=== PATIENT | male | born 1975 | race Hispanic/Latino ===

== ENCOUNTER → 2023-07-10 09:46 | Outpatient (REF) | payer OTHER, SELFPAY ==
[2023-07-10 10:52] LABS: ALT (SGPT) 154 U/L (0-50); AST (SGOT) 75 U/L (17-59); Albumin 3.3 g/dl (3.5-5.0); Alkaline Phosphatase 168 U/L (38-126); Blood Urea Nitrogen 7 mg/dl (9-20); Calcium 8.1 mg/dl (8.4-10.2); Carbon Dioxide 28 mmol/L (22-30); Chloride 109 mmol/L (98-107); GGTP 154 U/L (15-73); Glucose 99 mg/dl (70-99); Potassium 3.7 mmol/L (3.5-5.1); Sodium 139 mmol/L (135-145); Total Bilirubin 0.8 mg/dl (0.2-1.3); Total Protein 6.6 g/dl (6.3-8.2); eGFR > 60.00
[2023-07-10 11:06] LABS: Free T4 1.27 ng/dl (0.78-2.19)
[2023-07-10 11:19] LABS: TSH 0.93 uIU/ml (0.47-4.68)
[2023-07-10 11:49] LABS: Glycohemoglobin (HgbA1c) 7.7 % (4.0-5.6)
== END ==
LOC: REG 09:46
PROVIDERS: ATTENDING PHYSICIAN Nurse Practitioner Adult Health
DX: E66.3 Overweight (principal); E11.9 Type 2 diabetes mellitus without complications; K76.0 Fatty (change of) liver, not elsewhere classified
CPT/HCPCS: 36415; 80053; 82977; 83036; 84439; 84443

== ENCOUNTER → 2023-11-13 10:42 | Outpatient (REF) | payer OTHER, SELFPAY ==
[2023-11-13 11:38] LABS: ALT (SGPT) 129 U/L (0-50); AST (SGOT) 80 U/L (17-59); Albumin 3.5 g/dl (3.5-5.0); Alkaline Phosphatase 169 U/L (38-126); Blood Urea Nitrogen 9 mg/dl (9-20); Calcium 8.4 mg/dl (8.4-10.2); Carbon Dioxide 28 mmol/L (22-30); Chloride 107 mmol/L (98-107); GGTP 164 U/L (15-73); Glucose 123 mg/dl (70-99); Sodium 140 mmol/L (135-145); Total Bilirubin 0.8 mg/dl (0.2-1.3); Total Protein 6.4 g/dl (6.3-8.2); eGFR > 60.00
[2023-11-13 11:52] LABS: Free T4 1.23 ng/dl (0.78-2.19)
[2023-11-13 12:06] LABS: TSH 1.07 uIU/ml (0.47-4.68)
[2023-11-13 12:14] LABS: Glycohemoglobin (HgbA1c) 8.7 % (4.0-5.6)
== END ==
LOC: CLINIC 10:42
PROVIDERS: ATTENDING PHYSICIAN Nurse Practitioner Adult Health
DX: K76.0 Fatty (change of) liver, not elsewhere classified (principal); E66.3 Overweight; E11.9 Type 2 diabetes mellitus without complications
CPT/HCPCS: 36415; 80053; 82977; 83036; 84439; 84443

== ENCOUNTER → 2024-01-08 10:48 | Outpatient (REF) | payer OTHER, SELFPAY ==
[2024-01-08 12:17] LABS: ALT (SGPT) 136 U/L (0-50); AST (SGOT) 82 U/L (17-59); Albumin 3.6 g/dl (3.5-5.0); Alkaline Phosphatase 158 U/L (38-126); Blood Urea Nitrogen 11 mg/dl (9-20); Calcium 8.8 mg/dl (8.4-10.2); Carbon Dioxide 25 mmol/L (22-30); Chloride 105 mmol/L (98-107); Glucose 102 mg/dl (70-99); HDL Cholesterol 43 mg/dl; LDL Cholesterol, Calculated 138 mg/dl; Potassium 4.1 mmol/L (3.5-5.1); Sodium 143 mmol/L (135-145); Total Bilirubin 0.8 mg/dl (0.2-1.3); Total Cholesterol 213 mg/dl (50-199); Total Protein 6.7 g/dl (6.3-8.2); Triglyceride 162 mg/dl (10-149); Very Low Density Lipoprotein 32 mg/dl (0-30); eGFR > 60.00
[2024-01-08 12:23] LABS: Glycohemoglobin (HgbA1c) 6.9 % (4.0-5.6)
== END ==
LOC: REG 10:48
PROVIDERS: ATTENDING PHYSICIAN Nurse Practitioner Adult Health
DX: E78.5 Hyperlipidemia, unspecified (principal); R74.8 Abnormal levels of other serum enzymes; E11.9 Type 2 diabetes mellitus without complications
CPT/HCPCS: 36415; 80053; 80061; 83036

== ENCOUNTER → 2024-06-11 14:41 | Outpatient (REF) | payer OTHER, SELFPAY ==
[2024-06-11 17:16] LABS: Hematocrit 35.9 % (39.0-52.0); Hemoglobin 10.9 g/dL (13.0-18.0); Mean Corp Hgb Conc. 30.4 g/dL (33.0-37.0); Mean Corpuscular Hgb 22.4 pg (27.0-31.0); Mean Corpuscular Volume 73.7 fL (80.0-94.0); Platelet Count 107 10^3/uL (130-400); Red Blood Cell Count 4.87 10^6/uL (4.70-6.10); Red Cell Dist. Width 15.6 % (11.5-14.5); White Blood Cell Count 4.3 10^3/uL (4.8-10.8)
[2024-06-11 17:57] LABS: ALT (SGPT) 95 U/L (0-50); AST (SGOT) 60 U/L (17-59); Albumin 3.5 g/dl (3.5-5.0); Alkaline Phosphatase 154 U/L (38-126); Blood Urea Nitrogen 7 mg/dl (9-20); Calcium 8.3 mg/dl (8.4-10.2); Carbon Dioxide 27 mmol/L (22-30); Chloride 103 mmol/L (98-107); Glucose 97 mg/dl (70-99); Sodium 138 mmol/L (135-145); Total Bilirubin 1.1 mg/dl (0.2-1.3); Total Protein 6.4 g/dl (6.3-8.2); eGFR > 60.00
[2024-06-11 18:02] LABS: GGTP 113 U/L (15-73)
[2024-06-11 18:12] LABS: Vitamin D, 25-OH*** < 12.8 ng/mL (30-80)
[2024-06-12 08:55] LABS: Glycohemoglobin (HgbA1c) 7.8 % (4.0-5.6)
== END ==
LOC: REG 14:41
PROVIDERS: ATTENDING PHYSICIAN Nurse Practitioner Adult Health
DX: R74.8 Abnormal levels of other serum enzymes (principal); E11.9 Type 2 diabetes mellitus without complications; D50.9 Iron deficiency anemia, unspecified; E55.9 Vitamin D deficiency, unspecified
CPT/HCPCS: 36415; 80053; 82306; 82977; 83036; 85027

== ENCOUNTER → 2024-08-26 10:51 | Outpatient (REF) | payer OTHER, SELFPAY ==
[2024-08-26 12:02] LABS: Hematocrit 36.3 % (39.0-52.0); Hemoglobin 11.3 g/dL (13.0-18.0); Mean Corp Hgb Conc. 31.1 g/dL (33.0-37.0); Mean Corpuscular Hgb 22.8 pg (27.0-31.0); Mean Corpuscular Volume 73.2 fL (80.0-94.0); Platelet Count 110 10^3/uL (130-400); Red Blood Cell Count 4.96 10^6/uL (4.70-6.10); Red Cell Dist. Width 19.7 % (11.5-14.5); White Blood Cell Count 3.6 10^3/uL (4.8-10.8)
[2024-08-26 12:33] LABS: ALT (SGPT) 92 U/L (0-50); AST (SGOT) 50 U/L (17-59); Albumin 3.6 g/dl (3.5-5.0); Alkaline Phosphatase 149 U/L (38-126); Blood Urea Nitrogen 9 mg/dl (9-20); Calcium 8.5 mg/dl (8.4-10.2); Carbon Dioxide 26 mmol/L (22-30); Chloride 109 mmol/L (98-107); Glucose 117 mg/dl (70-99); Iron 74 ug/dl (49-181); Sodium 142 mmol/L (135-145); Total Bilirubin 0.9 mg/dl (0.2-1.3); Total Protein 6.4 g/dl (6.3-8.2); eGFR > 60.00
[2024-08-26 12:37] LABS: IgA 341 mg/dl (70-400); Vitamin D, 25-OH*** 32.6 ng/mL (30-80)
[2024-08-26 12:42] LABS: Percent Saturation 14 % (20-50); Total Iron Binding Capacity 497 ug/dl (261-462)
[2024-08-26 12:55] LABS: Ferritin 10.1 ng/ml (17.9-464.0)
[2024-08-26 13:10] LABS: Vitamin B12 587 pg/ml (239-931)
[2024-08-27 11:35] LABS: H. pylori Breath Test Positive (Negative)
[2024-08-28 08:53] LABS: Endomysial IgA Antibody Titer <1:10 (<1:10)
[2024-08-28 11:47] LABS: tTG IgA Antibody 6.6 EU/ml (0-19); tTG IgG Antibody 13.3 EU/ml (0-19)
== END ==
LOC: CLINIC 10:51
PROVIDERS: ATTENDING PHYSICIAN Nurse Practitioner Adult Health
DX: D64.9 Anemia, unspecified (principal)
CPT/HCPCS: 36415; 80053; 82306; 82607; 82728; 82784; 83013; 83516; 83540; 83550; 85027; 86231

== ENCOUNTER → 2025-01-07 14:02 | Outpatient (REF) | payer OTHER, SELFPAY ==
[2025-01-07 15:08] LABS: Hematocrit 34.7 % (39.0-52.0); Hemoglobin 10.0 g/dL (13.0-18.0); Mean Corp Hgb Conc. 28.8 g/dL (33.0-37.0); Mean Corpuscular Volume 69.7 fL (80.0-94.0); Platelet Count 118 10^3/uL (130-400); Red Cell Dist. Width 16.2 % (11.5-14.5)
[2025-01-07 15:59] LABS: Vitamin D, 25-OH*** 18.8 ng/mL (30-80)
[2025-01-07 16:32] LABS: ALT (SGPT) 115 U/L (0-50); AST (SGOT) 74 U/L (17-59); Albumin 3.8 g/dl (3.5-5.0); Alkaline Phosphatase 166 U/L (38-126); Blood Urea Nitrogen 10 mg/dl (9-20); Calcium 8.7 mg/dl (8.4-10.2); Carbon Dioxide 28 mmol/L (22-30); Chloride 107 mmol/L (98-107); Glucose 104 mg/dl (70-99); Potassium 3.8 mmol/L (3.5-5.1); Sodium 140 mmol/L (135-145); Total Protein 7.2 g/dl (6.3-8.2); eGFR > 60.00
[2025-01-08 10:12] LABS: Glycohemoglobin (HgbA1c) 8.7 % (4.0-5.6)
== END ==
LOC: CLINIC 14:02
PROVIDERS: ATTENDING PHYSICIAN Nurse Practitioner Adult Health
DX: A04.8 Other specified bacterial intestinal infections (principal); D50.9 Iron deficiency anemia, unspecified; E11.9 Type 2 diabetes mellitus without complications; K76.0 Fatty (change of) liver, not elsewhere classified; R74.8 Abnormal levels of other serum enzymes; E55.9 Vitamin D deficiency, unspecified
CPT/HCPCS: 36415; 80053; 82306; 83013; 83036; 85027

== ENCOUNTER → 2025-01-13 11:42 | Outpatient (REF) | payer OTHER, SELFPAY ==
[2025-01-13 13:20] LABS: ALT (SGPT) 104 U/L (0-50); AST (SGOT) 67 U/L (17-59); Albumin 3.5 g/dl (3.5-5.0); Alkaline Phosphatase 159 U/L (38-126); Total Protein 6.9 g/dl (6.3-8.2)
[2025-01-13 19:14] LABS: Hepatitis B Surface Antigen Negative (Negative)
[2025-01-13 19:33] LABS: Hepatitis C Antibody Negative (Negative)
[2025-01-15 22:01] LABS: Mitochondrial M2 Ab, IgG 13.9 Units (0.0-24.9)
[2025-01-16 02:38] LABS: ANA, IgG Reflex to HEp-2 None Detected (None Detected)
== END ==
LOC: CLINIC 11:42
PROVIDERS: ATTENDING PHYSICIAN Internal Medicine Gastroenterology
DX: R74.8 Abnormal levels of other serum enzymes (principal)
CPT/HCPCS: 36415; 80076; 82784; 86015; 86038; 86376; 86381; 86704; 86706; 86803; 87340

== ENCOUNTER → 2025-01-27 10:28 | Outpatient (REF) | payer OTHER, SELFPAY | LOC: CLINIC 10:28 | PROVIDERS: ATTENDING PHYSICIAN Nurse Practitioner Adult Health | DX: R74.8 Abnormal levels of other serum enzymes (principal) | CPT/HCPCS: 76700 ==

== ENCOUNTER 2025-02-03 07:20 | Day surgery (SDC) | payer OTHER, SELFPAY ==
[2025-02-03 09:23] LABS: Glucose - Point of Care 112 mg/dl (70-99)
== END 2025-02-03 15:35 | disposition home or self-care (01) ==
LOC: GI 07:20
PROVIDERS: ATTENDING PHYSICIAN Internal Medicine Gastroenterology
DX: D50.9 Iron deficiency anemia, unspecified (principal); K64.8 Other hemorrhoids; K63.89 Other specified diseases of intestine; K31.7 Polyp of stomach and duodenum; K29.70 Gastritis, unspecified, without bleeding; K31.89 Other diseases of stomach and duodenum; K29.60 Other gastritis without bleeding
CPT/HCPCS: 45380; 43239; 82962; 88305; 88342